=== PATIENT | female | born 1990 | race Caucasian/White ===

== ENCOUNTER 2017-11-12 18:57 | Inpatient (IN) ==
[2017-11-12] MEDS ORDERED: traZODone 50 MG TABLET PO PRN (19:03)
[2017-11-12] MEDS ORDERED: *HR* LORazepam 2 MG/ML VIAL IM PRN (19:03)
[2017-11-12] MEDS ORDERED: MOM Conc 10 ML UD.LIQ PO PRN (19:03)
[2017-11-12] MEDS ORDERED: hydrOXYzine pamoate 25 MG CAPSULE PO PRN (19:03)
[2017-11-12] MEDS ORDERED: *HR* LORazepam 1 MG TABLET PO PRN (19:03)
[2017-11-12] MEDS ORDERED: Haloperidol Lactate 5 MG/ML VIAL IM PRN (19:03)
[2017-11-12] MEDS ORDERED: Mag Hydrox/Al Hydrox/Simeth 30 ML UDC PO PRN (19:03)
[2017-11-12] MEDS: BuPROPion XL (24 HR) 150 MG TABLET PO SCH (21:34)
[2017-11-12] MEDS: Ibuprofen 400 MG TABLET PO PRN (21:34)
[2017-11-13] MEDS: (Norgestimate-Ethinyl Estradiol [Sprintec 28 Day Tablet]) PO SCH ×2 (09:15→20:59)
--- NOTE | 2017-11-13 11:35 | Psychiatry History & Physical ---
Date of Encounter: 11/13/17 Time of Encounter: 11:00 History of Present Illness Patient Stated Chief Complaint: Suicidal ideation Medicare Admission Attestation: For traditional Medicare patients the provided hospital inpatient services are reasonable and necessary and in the case of services not specified as inpatient -only under 42 CFR 419.22 (n), that they are appropriately provided as inpatient services in accordance 42 CFR 412.3. For Critical Access Hospital the patient may reasonably be expected to be discharged or transferred to a hospital within 96 hours after admission to the Critical Access Hospital. Admitted From: Hospital to Hospital Transfer ([facility]) History of Present Illness: Ms. Morocho is a 27 year old female admitted directly from [facility] emergency room. Patient denied any recent stressors but she has been dealing with depression for the last 2 years and yesterday she felt suicidal and could not get into to see if to get a gun so she developed a kitchen knife and went in the car and drove aimlessly she called her family and family contact the police patient was picked up by police and taken the hospital for evaluation and after medical clearance she was transferred to for further treatment. This is first psychiatric hospitalization for this patient, she has been seen as outpatient for medication and counseling for the last 6 months she is on citalopram and Wellbutrin. She stopped drinking alcohol for the past months, she denied any use of drugs. She works in a restaurant. She is and has no children, and her is supportive. Family history is positive for depression and her father and grandfather, she denies any history of abuse. Stressors are mostly not having children and burn out at work after working 11 years in the same job. Past Med Surg Social Fam HX - Past Medical History Medical history: no medical history - Past Psychiatric History Psychiatric history: Reports: anxiety, depression. Denies: prior suicide attempt, previous psychiatric hospitalization Past psychiatric history details: Outpatient treatment with medication and counseling for the past 6 months. Family psychiatric history: Yes (Father depression and THC) Family History of Suicide: Unknown - Social History Smoking Status: Never smoker Smokeless Tobacco Status: No Alcohol use: none Drug use: none Medications & Allergies Bupropion HCl [Wellbutrin Xl] 300 mg PO DAILY 11/12/17 [History] Citalopram Hydrobromide [Citalopram HBr] 40 mg PO DAILY 11/12/17 [History] Norgestimate-Ethinyl Estradiol [Sprintec 28 Day Tablet] 1 each PO DAILY [History] 3 Allergy/AdvReac Type Severity Reaction Status Date / Time Sulfa (Sulfonamide Allergy Rash Verified 11/12/17 14:39 Antibiotics) Review of Systems Psychiatric: Reports: depression, anxiety, suicidal ideation, change in libido, hopelessness Exam - HEENT Head exam IM: Present: atraumatic Eye exam IM: Present: EOMI, normal appearance, PERRL ENT exam IM: Present: normal exam - Neurological Neurological exam: Present: CN II-XII intact - Respiratory Respiratory exam IM: Present: CTAB - GI/Abdominal GI/Abdominal exam IM: Present: normal bowel sounds, soft. Absent: tenderness - Extremities Extremities exam IM: Present: full ROM - Skin Skin exam IM: Present: dry, warm - Constitutional Vitals: Temp Pulse Resp BP 98.2 F 73 16 115/80 11/12/17 19:17 11/12/17 19:17 11/12/17 19:17 11/12/17 19:17 General appearance: age & developmentally appropriate, well-groomed, well- nourished, obese - Musculoskeletal Gait: normal Station: relaxed Strength & Tone: normal for patient - Psychiatric Patient Orientation: Yes Person, Yes Time, Yes Place Level of alertness: Alert Behavior: calm, cooperative, anxious Psychomotor activity: Normal Eye Contact: Maintains Eye Contact Mood Description: Euthymic/stable, Labile Affect description: congruent with mood, full range, labile Speech Volume: Normal Speech pattern: normal rate, normal rhythm, normal tone, fluent, spontaneous Language & Vocabulary: consistent with education Thought Process: Linear, Goal Oriented Thought Content: Yes Suicidal ideation, No Homicidal ideation, No Overt delusions Perceptual Disturbances: No Auditory hallucinations, No Visual hallucinations Attention Span Ability: Capable of Focused Attention Memory Description: Grossly Intact Patient Reliability: Reliable Historian Fund of knowledge: Yes abstraction ability, Yes average, Yes aware of current events Intelligence Estimate: Average Judgment: Limited Insight: Partial Assessment and Plan (1) Depression Current visit: No Status: Acute Plan: Admit inpatient for safety and stabilization, Close observation, Suicide Precautions per unit protocol, Encourage participation in unit milieu, Group Therapy, Monitor sleep, Monitor appetite Additional Plan: We will decrease citalopram to 20 mg daily and add Neurontin 100 mg twice a day as mood stabilizer Risks, benefits, side effects, alternatives discussed w/pt: Yes Patient agreeable to treatment: Yes Qualifiers: Depression Type: major depressive disorder Major depression recurrence: recurrent Active/Remission status: currently active Major depression episode severity: severe Psychotic features: without psychotic features Qualified Code(s): F33.2 - Major depressive disorder, recurrent severe without psychotic features
[2017-11-13] MEDS: Ibuprofen 400 MG TABLET PO PRN (20:45)
[2017-11-13] MEDS: Gabapentin 100 MG CAPSULE PO SCH (20:45)
[2017-11-13] MEDS: BuPROPion XL (24 HR) 150 MG TABLET PO SCH (20:47)
[2017-11-14] MEDS: Gabapentin 100 MG CAPSULE PO SCH ×2 (09:32→20:40)
[2017-11-14] MEDS: (Norgestimate-Ethinyl Estradiol [Sprintec 28 Day Tablet]) PO SCH ×2 (09:55→20:41)
--- NOTE | 2017-11-14 12:02 | Psychiatry Progress Note ---
Date of Encounter: 11/14/17 Time of Encounter: 10:30 Subjective Interval history: Patient seen for follow-up. Case discussed with treatment team. She is tolerating medication changes and denies any complaints. She is anxious on the unit this is her first psychiatric hospitalization. She attends groups and interacts with staff. She denies any suicidal thoughts and she feels comfortable with current medication. She presented list of questions that she wrote and or her questions were answered and discussed to her satisfaction, she is proactive in getting herself better. Review of Systems Psychiatric: Reports: depression, anxiety, suicidal ideation, change in libido, hopelessness Results - Vital Signs Vital Signs: Temp Pulse Resp BP 97.8 F 87 16 110/78 11/14/17 09:00 11/14/17 09:00 11/14/17 09:00 11/14/17 09:00 Assessment and Plan (1) Depression Current visit: No Status: Inactive Plan: Continue hospitalization, Close observation, Suicide Precautions per unit protocol, Encourage participation in unit milieu, Group Therapy, Monitor sleep, Monitor appetite Risks, benefits, side effects, alternatives discussed w/pt: Yes Patient agreeable to treatment: Yes Qualifiers: Depression Type: major depressive disorder Major depression recurrence: recurrent Active/Remission status: currently active Major depression episode severity: severe Psychotic features: without psychotic features Qualified Code(s): F33.2 - Major depressive disorder, recurrent severe without psychotic features Consult Discharge Plan - Plan Referrals: [employer] [facility] ([facility]), [facility]. [Outside] - 11/15/17 1:00 pm (The above appointment is with Farshad Rashid for outpatient mental health counseling services. You also have another appointment with him scheduled for 12/18/2017 at 11:00 AM.) Gwen Hensley, ADONAY [Advanced Practice Nurse] - 11/28/17 1:30 pm (The above appointment is with Gwen Hensley for medication management services.) Psychiatry Exam - Constitutional Vitals: Temp Pulse Resp BP 97.8 F 87 16 110/78 11/14/17 09:00 11/14/17 09:00 11/14/17 09:00 11/14/17 09:00 General appearance: age & developmentally appropriate, well-groomed, well- nourished, obese - Musculoskeletal Gait: normal Station: relaxed Strength & Tone: normal for patient - Psychiatric Patient Orientation: Yes Person, Yes Time, Yes Place Level of alertness: Alert Behavior: calm, cooperative Psychomotor activity: Normal Eye Contact: Maintains Eye Contact Mood Description: Euthymic/stable Affect description: congruent with mood, full range, anxious Speech Volume: Normal Speech pattern: normal rate, normal rhythm, normal tone, fluent, spontaneous Language & Vocabulary: consistent with education Thought Process: Linear, Goal Oriented Thought Content: No Suicidal ideation, No Homicidal ideation, No Overt delusions Perceptual Disturbances: No Auditory hallucinations, No Visual hallucinations Attention Span Ability: Capable of Focused Attention Memory Description: Grossly Intact Patient Reliability: Reliable Historian Fund of knowledge: Yes abstraction ability, Yes aware of current events Intelligence Estimate: Average Judgment: Limited Insight: Partial
[2017-11-14] MEDS: BuPROPion XL (24 HR) 150 MG TABLET PO SCH (20:40)
[2017-11-14] MEDS ORDERED: NORGESTIMATE ETHINYL ESTRADIOL PO SCH (21:00)
--- NOTE | 2017-11-15 09:15 | Discharge Summary ---
Date of Encounter: 11/15/17 Time of Encounter: 09:10 Diagnosis - Discharge Diagnosis (1) Depression Status: Inactive Qualifiers: Depression Type: major depressive disorder Major depression recurrence: recurrent Active/Remission status: currently active Major depression episode severity: severe Psychotic features: without psychotic features Qualified Code(s): F33.2 - Major depressive disorder, recurrent severe without psychotic features Medications - Discharge Medications Prescriptions: Bupropion HCl [Wellbutrin Xl] 300 mg PO DAILY #30 tab.er.24h Citalopram [CeleXA] 20 mg PO HS #30 tablet Gabapentin [Neurontin] 100 mg PO BID #60 capsule Norgestimate-Ethinyl Estradiol [Sprintec 28 Day Tablet] 1 each PO DAILY [History] Bupropion HCl [Wellbutrin Xl] 300 mg PO DAILY #30 tab.er.24h 11/15/17 [Rx] Citalopram [CeleXA] 20 mg PO HS #30 tablet 11/15/17 [Rx] Gabapentin [Neurontin] 100 mg PO BID #60 capsule 11/15/17 [Rx] 3 Allergy/AdvReac Type Severity Reaction Status Date / Time Sulfa (Sulfonamide Allergy Rash Verified 11/12/17 14:39 Antibiotics) Provider Date of admission: 11/12/17 18:57 Primary care physician: PCP NONE Discharging clinician: Erick Ramirez Psychiatry Exam - Constitutional Vitals: Temp Pulse Resp BP 98.2 F 73 14 112/71 11/14/17 20:25 11/14/17 20:25 11/14/17 20:25 11/14/17 20:25 General appearance: age & developmentally appropriate, well-groomed, well- nourished, obese - Musculoskeletal Gait: normal Station: relaxed Strength & Tone: normal for patient - Psychiatric Patient Orientation: Yes Person, Yes Time, Yes Place Level of alertness: Alert Behavior: calm, cooperative Psychomotor activity: Normal Eye Contact: Maintains Eye Contact Mood Description: Euthymic/stable Affect description: congruent with mood, full range Speech Volume: Normal Speech pattern: normal rate, normal rhythm, normal tone, fluent, spontaneous Language & Vocabulary: consistent with education Thought Process: Linear, Goal Oriented Thought Content: No Suicidal ideation, No Homicidal ideation, No Overt delusions Perceptual Disturbances: No Auditory hallucinations, No Visual hallucinations Attention Span Ability: Capable of Focused Attention Memory Description: Grossly Intact Patient Reliability: Reliable Historian Fund of knowledge: Yes abstraction ability, Yes aware of current events Intelligence Estimate: Average Judgment: Limited Insight: Partial Hospital Course Hospital course: Ms. Morocho is a 27 year old female admitted for depression and suicidal ideation. For details admission please see H&P On the unit patient medication were reviewed citalopram was reduced to 20 mg daily to minimize side effects continued Wellbutrin and were added gabapentin 100 mg twice daily as a mood stabilizer. Patient responded well to medication changes she reported improved mood and sleep. She participated in activity and was proactive and asking questions of learning about depression and coping skills. She was educated about treatments and benefits of treatment. On discharge patient was medically stable nonsuicidal, well motivated and future oriented and making plans for outpatient treatment. She is discharged in stable condition. - Time Spent with Patient Total time spent providing and/or coordinating discharge services: Greater than 30 minutes Assessment and Plan - Patient/Caregiver Discharge Instructions Activity: resume usual activities as tolerated Diet: regular diet - Follow up Plan Follow up with: [facility]. [Outside] - 11/15/17 1:00 pm (The above appointment is with Farshad Rashid for outpatient mental health counseling services. You also have another appointment with him scheduled for 12/18/2017 at 11:00 AM.) Gwen Hensley CNP [Advanced Practice Nurse] - 11/28/17 1:30 pm (The above appointment is with Gwen Hensley for medication management services.) Functional capacity at discharge: independent ambulation Overall status at discharge: Stable Disposition: Home, Self-Care Quality - Multiple Antipsychotics Patient discharged on 2 or more antipsychotic medications: No Procedures - Procedures Procedures: Medication Management, Crisis Stabilization, Supportive Therapy, Group Therapy, Psychoeducational Therapy
[2017-11-15] MEDS: Gabapentin 100 MG CAPSULE PO SCH (09:16)
[2017-11-15 09:23] VITALS: BP 102/73
== END 2017-11-15 10:55 | disposition home or self-care (01) | DRG 885 ==
LOC: 1ANU 18:57
PROVIDERS: ADMIT Psychiatry & Neurology Psychiatry; ATTEND Psychiatry & Neurology Psychiatry

== ENCOUNTER 2020-10-23 07:00 | Inpatient (IN) ==
[2020-10-23] MEDS ORDERED: EPHEDrine 50 MG/ML VIAL IVP PRN (07:18)
[2020-10-23] MEDS ORDERED: *HR* Nalbuphine 10 MG/ML AMPUL IV PRN (07:40)
[2020-10-23] MEDS ORDERED: Azithromycin 500 MG in 0.9 % Sodium Chloride 250 ML IVPB ONE (07:40)
[2020-10-23] MEDS ORDERED: Famotidine 20 MG/2 ML VIAL IVP PRN (07:40)
[2020-10-23] MEDS ORDERED: Naloxone 0.4 MG/ML INJ IVP PRN (07:40)
[2020-10-23] MEDS ORDERED: Metoclopramide 10 MG/2 ML VIAL IVP PRN (07:40)
[2020-10-23] MEDS ORDERED: Lidocaine 1% 20 ML MDV ID PRN (07:40)
[2020-10-23] MEDS ORDERED: Ringers Solution, Lactated 1,000 ML IVC SCH (07:45)
[2020-10-23 08:54] LABS: Basophils % 0.5 %; Eosinophils # 0.1 K/mcL (0.0-0.6); Eosinophils % 1.2 %; Hematocrit 38.4 % (35.3-44.9); Hemoglobin 13.4 g/dL (11.5-15.4); Immature Granulocytes % 0.7 % (0-4); Mean Corpuscular HGB Conc 34.9 g/dL (31.6-35.5); Mean Corpuscular Hemoglobin 30.4 pg (28.0-33.3); Mean Corpuscular Volume 87.1 fL (83.0-100.0); Mean Platelet Volume 11.1 fL (9.4-12.4); Monocytes # 0.6 K/mcL (0.0-1.3); Monocytes % 6.7 %; Neutrophils # 6.1 K/mcL (1.6-8.9); Platelet Count 180 K/mcL (140-400); Red Blood Count 4.41 M/mcL (3.82-4.97); Red Cell Distribution Width 12.5 % (11.5-14.5); Segmented Neutrophils % 68.9 %; White Blood Count 8.9 K/mcL (4.3-11.1)
[2020-10-23] MEDS: Oxytocin 20 units/ LR 1000 mL 20 UNIT/1,000 ML BAG IVC SCH (09:04)
[2020-10-23 09:05] LABS: Amphetamine Screen,Urine Negative ng/mL (Cutoff=1000); Barbiturate Screen,Urine Negative ng/mL (Cutoff=200); Benzodiazepines Screen,Urine Negative ng/mL (Cutoff=200); Cannabinoid Screen,Urine Negative ng/mL (Cutoff = 50); Cocaine Screen,Urine Negative ng/mL (Cutoff= 300); Opiate Screen,Urine Negative ng/mL (Cutoff=300); Phencyclidine Screen,Urine Negative ng/mL (Cutoff=25)
[2020-10-23] MEDS: Ondansetron 4 MG/2 ML VIAL IVP PRN (13:25)
[2020-10-23 14:37] LABS: Influenza A PCR Negative (Negative); Influenza B PCR Negative (Negative); Resp. Syncytial Virus PCR Negative (Negative); SARS-CoV-2 by PCR (In House) Negative (Negative)
[2020-10-24] MEDS: Ondansetron 4 MG/2 ML VIAL IVP PRN ×2 (02:40→08:13)
[2020-10-24] MEDS: Epidural Premix (fent/bupiv) 110 ML EP SCH ×2 (02:46→11:51)
[2020-10-24] MEDS ORDERED: Acetaminophen 650 MG RECTAL SUPP RC PRN (10:16)
[2020-10-24] MEDS ORDERED: Methylergonovine 0.2 MG/ML AMPUL IM ONE (10:18)
[2020-10-24] MEDS ORDERED: Gentamicin 420 MG in 0.9 % Sodium Chloride 100 ML IVPB ONE (11:31)
[2020-10-24] MEDS ORDERED: Ampicillin 2 GM in 0.9 % Sodium Chloride Mini Bag 100 ML IVPB SCH (12:00)
[2020-10-24] MEDS ORDERED: Lidocaine/EPI 1:200k 2% PF 20 ML VIAL ONE (12:45)
[2020-10-24] MEDS ORDERED: *HR* FentaNYL (PF) 100 MCG/2 ML VIAL ONE (12:45)
[2020-10-24] MEDS ORDERED: Sodium Bicarbonate 50 MEQ/50 ML VIAL ONE (12:45)
[2020-10-24] MEDS ORDERED: Ondansetron 4 MG/2 ML VIAL ONE ×2 (13:13→13:57)
[2020-10-24] MEDS ORDERED: Azithromycin 500 MG in 0.9 % Sodium Chloride 250 ML IVPB PRN (13:15)
[2020-10-24] MEDS ORDERED: *HR* Oxytocin 10 UNIT/ML VIAL IM ONE ×2 (13:19→13:32)
[2020-10-24] MEDS ORDERED: *HR* Morphine Sulfate/PF 10 MG/10 ML AMPUL ONE (13:27)
[2020-10-24] MEDS ORDERED: *HR* Promethazine 25 MG/ML VIAL ONE (13:56)
[2020-10-24] MEDS: Oxytocin 20 units/ LR 1000 mL 20 UNIT/1,000 ML BAG IVC SCH (14:49)
[2020-10-24] MEDS ORDERED: Ketorolac 30 MG/ML VIAL ONE (14:54)
[2020-10-24] MEDS ORDERED: CeFAZolin 2 GM/120 ML BAG IVPB SCH (16:00)
[2020-10-24] MEDS: metroNIDAZOLE 500 MG TABLET PO SCH ×2 (16:00→23:54)
[2020-10-24] MEDS ORDERED: Sennosides 8.6 MG TABLET PO PRN (16:01)
[2020-10-24] MEDS ORDERED: Simethicone 80 MG TAB.CHEW PO PRN (16:01)
[2020-10-24] MEDS ORDERED: Metoclopramide 10 MG/2 ML VIAL IVP PRN (16:01)
[2020-10-24] MEDS ORDERED: Oxytocin 20 units/ LR 1000 mL 20 UNIT/1,000 ML BAG IVC SCH (16:01)
[2020-10-24] MEDS ORDERED: Ondansetron 4 MG/2 ML VIAL IVP PRN (16:01)
[2020-10-24] MEDS ORDERED: Rho Immune Globulin 1,500 UNIT SYRINGE IM ONE (16:01)
[2020-10-24] MEDS ORDERED: Ringer's Solution, Lactated 250 ML IV.SOLN IVC SCH (19:15)
[2020-10-24] MEDS ORDERED: Ringers Solution, Lactated 1,000 ML IVC SCH (19:15)
[2020-10-24] MEDS: Ibuprofen 600 MG TABLET PO PRN (23:54)
[2020-10-25] MEDS ORDERED: CeFAZolin 2 GM/120 ML BAG IVPB SCH (00:20)
[2020-10-25 05:54] LABS: Basophils % 0.1 %; Eosinophils % 0.2 %; Hematocrit 29.6 % (35.3-44.9); Immature Granulocytes % 0.6 % (0-4); Lymphocytes # 1.4 K/mcL (0.6-4.6); Lymphocytes % 6.9 %; Mean Corpuscular HGB Conc 34.8 g/dL (31.6-35.5); Mean Corpuscular Hemoglobin 30.2 pg (28.0-33.3); Mean Corpuscular Volume 86.8 fL (83.0-100.0); Mean Platelet Volume 10.9 fL (9.4-12.4); Monocytes # 0.9 K/mcL (0.0-1.3); Monocytes % 4.6 %; Platelet Count 147 K/mcL (140-400); Red Blood Count 3.41 M/mcL (3.82-4.97); Red Cell Distribution Width 12.5 % (11.5-14.5); Segmented Neutrophils % 87.6 %
[2020-10-25 05:58] LABS: Hemoglobin 10.3 g/dL (11.5-15.4); Neutrophils # 17.3 K/mcL (1.6-8.9); White Blood Count 19.8 K/mcL (4.3-11.1)
[2020-10-25] MEDS ORDERED: Enoxaparin Weight Dosing SQ SCH (06:00)
[2020-10-25] MEDS: Ibuprofen 600 MG TABLET PO PRN ×3 (07:49→22:50)
[2020-10-25] MEDS: *HR* Enoxaparin 60 MG/0.6 ML SYRINGE SQ SCH ×2 (07:50→17:47)
[2020-10-25] MEDS ORDERED: SODIUM CHLORIDE 0.9% IVPB SCH (09:00)
[2020-10-25] MEDS ORDERED: GENTAMICIN IVPB SCH (09:00)
[2020-10-25] MEDS: Prenatal Vit/FA 1 EACH TABLET PO SCH (09:15)
[2020-10-25] MEDS: cephALEXin 500 MG CAPSULE PO SCH ×3 (09:16→19:49)
[2020-10-25] MEDS: metroNIDAZOLE 500 MG TABLET PO SCH ×3 (09:16→19:49)
[2020-10-25] MEDS: *HR* OxyCODONE/APAP 5/325 TABLET PO PRN ×3 (09:17→19:49)
[2020-10-25] MEDS ORDERED: Gentamicin 420 MG in 0.9 % Sodium Chloride 100 ML IVPB SCH (12:30)
[2020-10-26] MEDS: *HR* OxyCODONE/APAP 5/325 TABLET PO PRN (03:22)
[2020-10-26] MEDS: Ibuprofen 600 MG TABLET PO PRN (06:53)
[2020-10-26] MEDS: *HR* Enoxaparin 60 MG/0.6 ML SYRINGE SQ SCH (06:58)
[2020-10-26 07:51] VITALS: BP 101/65
[2020-10-26] MEDS: cephALEXin 500 MG CAPSULE PO SCH (08:21)
[2020-10-26] MEDS: metroNIDAZOLE 500 MG TABLET PO SCH (08:21)
[2020-10-26] MEDS: Prenatal Vit/FA 1 EACH TABLET PO SCH (08:21)
== END 2020-10-26 13:15 | disposition home or self-care (01) | DRG 787 ==
LOC: 1NENULAB 07:02 → 1NENUOBS 10-24 18:15
PROVIDERS: ADMIT Student in an Organized Health Care Education/Training Program; ATTEND Student in an Organized Health Care Education/Training Program